=== PATIENT | female | born 1985 | race Caucasian/White ===

== ENCOUNTER → 2018-08-20 13:00 | Outpatient (CLI) | payer OTHER, SELFPAY | PROVIDERS: PCP Family Medicine | DX: Z23 Encounter for immunization (principal) | CPT/HCPCS: 90471; 90686 ==

== ENCOUNTER → 2019-03-04 08:48 | Outpatient (CLI) | payer OTHER, SELFPAY ==
[2019-03-07 14:29] LABS: Progesterone 19.9 ng/mL
== END ==
PROVIDERS: Family Provider Family Medicine; PCP Family Medicine; Visit Provider Obstetrics & Gynecology Reproductive Endocrinology
DX: Z31.41 Encounter for fertility testing (principal)
CPT/HCPCS: 36415; 84144

== ENCOUNTER → 2019-03-30 09:24 | Outpatient (CLI) | payer OTHER, SELFPAY ==
[2019-03-30 11:16] LABS: Progesterone, Total 5.76 ng/mL
== END ==
PROVIDERS: Family Provider Family Medicine; PCP Family Medicine; Visit Provider Obstetrics & Gynecology Reproductive Endocrinology
DX: Z31.41 Encounter for fertility testing (principal)
CPT/HCPCS: 36415; 84144

== ENCOUNTER → 2019-05-12 09:29 | Outpatient (CLI) | payer OTHER, SELFPAY ==
[2019-05-12 10:15] LABS: HCG Quantitative /Beta subunit 77.35 mIU/mL
== END ==
PROVIDERS: Family Provider Family Medicine; PCP Family Medicine; Visit Provider Obstetrics & Gynecology Reproductive Endocrinology
DX: Z32.00 Encounter for pregnancy test, result unknown (principal)
CPT/HCPCS: 36415; 84702

== ENCOUNTER → 2019-05-14 08:42 | Outpatient (CLI) | payer OTHER, SELFPAY ==
[2019-05-14 09:36] LABS: HCG Quantitative /Beta subunit 179.57 mIU/mL
[2019-05-14 10:13] LABS: Thyroid Stimulating Hormone 1.86 uIU/mL (0.47-4.68)
== END ==
PROVIDERS: PCP Family Medicine; Visit Provider Obstetrics & Gynecology Reproductive Endocrinology
DX: Z32.01 Encounter for pregnancy test, result positive (principal)
CPT/HCPCS: 36415; 84443; 84702

== ENCOUNTER → 2019-05-31 12:43 | Outpatient (CLI) | payer OTHER, SELFPAY ==
[2019-05-31 13:31] LABS: HCG Quantitative /Beta subunit 2217.4 mIU/mL
== END ==
PROVIDERS: PCP Family Medicine; Visit Provider Obstetrics & Gynecology Reproductive Endocrinology
DX: Z32.01 Encounter for pregnancy test, result positive (principal)
CPT/HCPCS: 36415; 84702

== ENCOUNTER → 2019-06-14 07:28 | Outpatient (CLI) | payer OTHER, SELFPAY ==
[2019-06-14 08:14] LABS: HCG Quantitative /Beta subunit 1803.7 mIU/mL
== END ==
PROVIDERS: PCP Family Medicine; Visit Provider Obstetrics & Gynecology Reproductive Endocrinology
DX: Z32.01 Encounter for pregnancy test, result positive (principal)
CPT/HCPCS: 36415; 84702

== ENCOUNTER → 2019-06-17 10:18 | Outpatient (CLI) | payer OTHER, SELFPAY ==
[2019-06-17 11:07] LABS: HCG Quantitative /Beta subunit 1288.4 mIU/mL
== END ==
PROVIDERS: PCP Family Medicine; Visit Provider Obstetrics & Gynecology Reproductive Endocrinology
DX: Z32.01 Encounter for pregnancy test, result positive (principal)
CPT/HCPCS: 36415; 84702

== ENCOUNTER 2019-06-19 17:57 | Observation (INO) | payer OTHER, SELFPAY ==
[2019-06-19] VITALS (18 sets, daily range): BP systolic 97–141; BP diastolic 60–87; PULSE 69–81; RESP 11–25; TEMP 36.1–37.6; O2SAT 91–98; BMI 33.6
--- NOTE | 2019-06-19 | PATH_ITS ---
[facility] Accession Number: [id number] . 01 Material submitted: . fallopian tube - LEFT FALLOPIAN TUBE . 01 Clinical history: . RUPTURED ECTOPIC . 02 Diagnosis: Left Fallopian Tube, Salpingectomy: Fallopian tube with luminal chorionic villi, mural defect and hemorrhage, consistent with ruptured ectopic . No evidence of malignancy. MRV/06/23/2019 . 02 Electronically signed: . Dash Cai MD, PhD, Pathologist NPI- [id number] . 01 Gross description: . Received in formalin, labeled left fallopian tube, is a fimbriated fallopian tube in two pieces (length-8.1 cm, diameter-up to 1.1 cm) with bonilla-purple, smooth and shiny serosa. The lumen is dilated and contains red-brown focally pale material. No tissue is identified. Also, submitted are multiple fragments of red-brown spongy tissue (2.6 x 2.3 x 0.5 cm in aggregate). Section code: (A1-A6) fallopian tube, serially sectioned and entirely submitted proximal to distal; (A7-A8) fimbria, bivalved; (A9) tissue fragments. The specimen is entirely submitted. ([id number]) /[facility] . 02 Pathologist provided ICD-10: O00.90 . 02 CPT . 962390 Performed at: 01 [facility] [address], [place], [place] [id number] MD Akbar Smiley MD Phone: [phone] Performed at: [facility] [address] [place], [place] [id number] MD Leah Murillo MD Phone: [phone]
--- NOTE | 2019-06-19 17:59 | ED.GENADULT ---
HPI - General Adult General Chief complaint: OB/Uterine Contractions Stated complaint: Ruptured ectopic Time Seen by Provider: 06/19/19 17:58 Source: patient Mode of arrival: EMS Limitations: no limitations History of Present Illness HPI narrative: 33-year-old female transferred to us from [facility] per the patient's request with a known diagnosis of left-sided ruptured ectopic . Patient is a . On 06/02/2019 was diagnosed with a left-sided ectopic . This was diagnosed by [facility]. She was undergoing treatment for infertility at the time however only received 1 dose of medication and then was diagnosed as being . On 06/02/2019 she stated that she would have been approximately 7 weeks EGA. The ectopic was diagnosed by ultrasound after her HCG levels were increasing however no IUP was identified. She received her 1st dose of methotrexate on that day. Her 2nd dose of methotrexate was on 06/10/2019. She stated that today at approximately 1100 hours this morning she was at a store when she had a sudden onset of left lower quadrant/left adnexa pain. She went to the closest hospital which was [facility]. Her OB doctor in [place] was contacted and the OB provider here at [facility] was contacted. Patient was transferred here per the patient's request. Upon arrival patient had received some pain medication and stated that her pain was slightly increasing. Her last meal was before noon today. Review of blood that was drawn at outside facility today shows a unremarkable CMP. Unremarkable BMP with the hemoglobin hematocrit of 13.2/39.3. Patient's blood type is a positive. Beta HCG today was 957. She had a pelvic ultrasound showing a complex left adnexal mass like lesion with persistent internal vascularity measuring 5.6 cm. This presumably corresponds to the previously described left ectopic . Complex small volume free fluid in pelvis. Related Data Home Medications Medication Instructions Recorded Confirmed vit-iron fum-folic ac 1 cap PO QDAY #0 08/13/17 [Mynatal] docosahexanoic acid 300 mg capsule mg PO cap 09/09/18 09/09/18 Previous Rx's Medication Instructions Recorded valacyclovir 500 mg tablet 500 mg PO TWICE A DAY #14 tab 09/23/18 oxycodone-acetaminophen [Percocet] 2 tab PO Q4-6H PRN #30 tab 06/19/19 Allergies Allergy/AdvReac Type Severity Reaction Status Date / Time No Known Drug Allergies Allergy Verified 06/19/19 18:05 Review of Systems Constitutional Denies fever(s) and Denies headache(s) ENT Ears, Nose, Mouth, and Throat: Denies headache(s) Cardiovascular Denies chest pain and Denies dyspnea Respiratory Denies dyspnea Gastrointestinal Gastrointestinal: Reports abdominal pain, Denies nausea and Denies vomiting Genitourinary Denies dysuria and Reports pelvic pain Musculoskeletal Denies myalgias and Denies arthralgias Neurologic Denies headache(s) Hematologic/Lymphatic Denies easy bleeding and Denies easy bruising [facility] Medical History Abnormal Pap smear of cervix (Chronic ~2010) Asthma (Chronic) CAMRYN II (cervical intraepithelial neoplasia II) (Chronic 2014) Fibroids (Chronic ~2008) GERD (gastroesophageal reflux disease) (Chronic) Hayfever (Chronic) Hemorrhoids (Chronic 2015) Scoliosis (Chronic) Social History marital status: household members: family lives independently: Yes education level: college occupational status: employed Smoking Status: Never smoker alcohol intake: current (rare) substance use type: does not use Exam Initial Vital Signs Initial Vital Signs: Vital Signs Temperature 99.6 F 06/19/19 17:56 Pulse Rate 69 06/19/19 17:56 Respiratory Rate 20 06/19/19 17:56 Blood Pressure 140/86 06/19/19 17:56 Pulse Oximetry 98 06/19/19 17:56 Const General: cooperative, comfortable, well developed, well groomed and No acute distress Orientation: alert and awake [facility] Head: normal to inspection and normocephalic Resp Effort & Inspection: normal respiratory effort Cardio Rate: regular rate Rhythm: regular rhythm GI Inspection: non-distended Skin Lesions: no lesions Rashes: no rashes Neuro General: alert and awake Cognition: normal cognition Speech: speech normal Extrem General: normal to inspection Psych Appearance: grossly normal and well kempt Course Orders Ordered: Sodium Chloride (Normal Saline 0.9%) 1,000 mls @ 125 mls/hr IV CONT DENYS Last Admin: 06/19/19 18:27 Dose: 125 mls/hr Discontinued Medications Morphine Sulfate (Morphine) 4 mg IV NOW ONE Stop: 06/19/19 18:12 Last Admin: 06/19/19 18:27 Dose: 4 mg Ondansetron HCl (Zofran) 4 mg IV NOW ONE Stop: 06/19/19 18:12 Last Admin: 06/19/19 18:27 Dose: 4 mg Vital Signs - 8 hr 06/19/19 17:56 06/19/19 18:41 Temperature 99.6 F Pulse Rate 69 74 Respiratory Rate 20 16 Blood Pressure 140/86 Blood Pressure [Left Arm] 141/87 H Pulse Oximetry 98 Medical Decision Making MDM Narrative Medical decision making narrative: Patient is stable. Dr. Bella with [employer] [facility] [employer] was contacted when the patient arrived. She knew that this patient was being transferred to this hospital. No further labs were ordered out of the emergency department. Patient was given 1 dose of pain medication and nausea medication. Will admit for further evaluation and treatment. Patient was made aware of the admission she expressed understanding and agreement. Discharge Plan Departure Patient Disposition: Admitted As Inpatient Clinical Impression: Ruptured ectopic Admit Date/Time: 06/19/19 18:41 Admit Provider: Colleen Bella
[2019-06-19] MEDS: ONDANSETRON 4 MG/2 ML INJ IV (18:27)
[2019-06-19] MEDS: MORPHINE 4 MG/ML INJ IV (18:27)
[2019-06-19] MEDS: SODIUM CHLORIDE 0.9% 1,000 ML 125 ML IV (18:27)
--- NOTE | 2019-06-19 18:49 | PM.GYNHP.1 ---
History of Present Illness Reason for admission: ectopic Narrative: Sara Simpson is a 33 year old female admitted for surgical treatment of an ectopic . Patient was diagnosed with an ectopic at her infertility Clinic. She was treated with methotrexate x2 on the in the . Her HCG levels were falling but she had sudden onset of severe pain and presented to the emergency room at [facility]. She was diagnosed with probable ruptured ectopic with mass in her left adnexa in free fluid in the abdomen. Patient requested coming to [facility] for her surgery. [facility] Social History marital status: household members: family lives independently: Yes education level: college occupational status: employed Smoking Status: Never smoker alcohol intake: current (rare) substance use type: does not use Meds Home Medications Medication Instructions Recorded Confirmed Type vit-iron fum-folic ac 1 cap PO QDAY #0 08/13/17 History [Mynatal] docosahexanoic acid 300 mg capsule mg PO cap 09/09/18 09/09/18 History valacyclovir 500 mg tablet 500 mg PO TWICE A DAY #14 tab 09/23/18 Rx oxycodone-acetaminophen [Percocet] 2 tab PO Q4-6H PRN #30 tab 06/19/19 Rx Allergies Allergy/AdvReac Type Severity Reaction Status Date / Time No Known Drug Allergies Allergy Verified 06/19/19 18:05 Review of Systems Review of Systems Patient has severe left lower quadrant pain. Mild nausea. Minimal vaginal bleeding. All systems reviewed & are unremarkable except as noted in HPI and below Exam Vital Signs (past 8 hours): - 06/19/19 17:56 06/19/19 18:41 Temperature 99.6 F Pulse Rate 69 74 Respiratory Rate 20 16 Blood Pressure 140/86 Blood Pressure [Left Arm] 141/87 H Pulse Oximetry 98 Oxygen Delivery Method Room Air Narrative Exam Narrative: HEENT exam within normal limits. Lungs are clear to auscultation percussion. Heart is regular rate and rhythm no S3-S4 or murmurs. Abdomen is soft with tenderness in the left lower quadrant. Pelvic exam was not repeated. Extremities without edema and nontender. Objective Imaging US - abdomen: Radiologist's impression: 5 cm left adnexal complex mass probable ectopic with free fluid in the abdomen. Assessment & Plan (1) Ruptured ectopic : Current visit: Yes Status: Acute Assessment & Plan narrative: Patient with ruptured ectopic likely. Options for removal or saving the 2 were discussed with the patient. She is aware that if we safer tube there is a 25% chance of ectopic . Patient decided she would prefer to have the tube removed rather than that and risk of ectopic repeating. She understands that this might lower her chance of in the future. Risks of laparoscopic removal were discussed the patient including damage to internal structures such as bowel, bladder, ureters. Minimal risk of infection or bleeding requiring transfusion. Possible opening abdomen. Consent form was signed and questions answered.
--- NOTE | 2019-06-19 18:55 | P.HPOB_ITS ---
History of Present Illness Reason for admission: ectopic Narrative: Sara Simpson is a 33 year old female admitted for surgical treatment of an ectopic . Patient was diagnosed with an ectopic at her infertility Clinic. She was treated with methotrexate x2 on the in the . Her HCG levels were falling but she had sudden onset of severe pain and presented to the emergency room at [facility]. She was diagnosed with probable ruptured ectopic with mass in her left adnexa in free fluid in the abdomen. Patient requested coming to [facility] for her surgery. [facility] Social History marital status: household members: family lives independently: Yes education level: college occupational status: employed Smoking Status: Never smoker alcohol intake: current (rare) substance use type: does not use Meds Home Medications Medication Instructions Recorded Confirmed Type vit-iron fum-folic ac 1 cap PO QDAY #0 08/13/17 History [Mynatal] docosahexanoic acid 300 mg capsule mg PO cap 09/09/18 09/09/18 History valacyclovir 500 mg tablet 500 mg PO TWICE A DAY #14 tab 09/23/18 Rx oxycodone-acetaminophen [Percocet] 2 tab PO Q4-6H PRN #30 tab 06/19/19 Rx Allergies Allergy/AdvReac Type Severity Reaction Status Date / Time No Known Drug Allergies Allergy Verified 06/19/19 18:05 Review of Systems Review of Systems Patient has severe left lower quadrant pain. Mild nausea. Minimal vaginal bleeding. All systems reviewed & are unremarkable except as noted in HPI and below Exam Vital Signs (past 8 hours): - 06/19/19 17:56 06/19/19 18:41 Temperature 99.6 F Pulse Rate 69 74 Respiratory Rate 20 16 Blood Pressure 140/86 Blood Pressure [Left Arm] 141/87 H Pulse Oximetry 98 Oxygen Delivery Method Room Air Narrative Exam Narrative: HEENT exam within normal limits. Lungs are clear to auscult ation percussion. Heart is regular rate and rhythm no S3-S4 or murmurs. Abdomen is soft with tenderness in the left lower quadrant. Pelvic exam was not repeated. Extremities without edema and nontender. Objective Imaging US - abdomen: Radiologist's impression: 5 cm left adnexal complex mass probable ectopic with free fluid in the abdomen. Assessment & Plan (1) Ruptured ectopic : Current visit: Yes Status: Acute Assessment & Plan narrative: Patient with ruptured ectopic likely. Options for removal or saving the 2 were discussed with the patient. She is aware that if we safer tube there is a 25% chance of ectopic . Patient decided she would prefer to have the tube removed rather than that and risk of ectopic repeating. She understands that this might lower her chance of in the future. Risks of laparoscopic removal were discussed the patient including damage to internal structures such as bowel, bladder, ureters. Minimal risk of infection or bleeding requiring transfusion. Possible opening abdomen. Consent form was signed and questions answered.
--- NOTE | 2019-06-19 18:55 | PM.PREOP ---
Pre-operative Note Interval Note History & Physical reviewed/Exam performed by Physician: Yes Changes to H&P: No
[2019-06-19] MEDS: LACTATED RINGERS 1,000 ML 42 ML IV (19:30)
--- NOTE | 2019-06-19 20:05 | SUR.OPER ---
Lithotomy on padded OR bed, head on pillow, arms secured on padded arm boards at <90 degrees abduction. Legs secured in padded yellow fins stirrups.
[2019-06-19] MEDS: BUPIVACAINE 0.5% W/ EPI (PF) VIAL 30 ML INJ (20:13)
--- NOTE | 2019-06-19 20:51 | PM.OP.1 ---
Operative Date/Time/Diagnoses Date of procedure: 06/19/19 Time of procedure: 20:51 Pre-op diagnosis: Ruptured ectopic Post-op diagnosis: same Procedure & Clinicians Procedure: Laparoscopic removal of left fallopian tube ectopic Same procedure as scheduled: Yes Indications: Patient with known ectopic with sudden onset of pain and free fluid in the abdomen with 5 cm complex mass on the left side Click Yes if Unassisted: Yes Anesthesia Type: General Operative Notes Findings: Left fallopian tube with rupture through the side of the fallopian tube. Normal right fallopian tube and ovary. Normal left ovary. Uterus with a small anterior subserosal fibroid. Approximately 100 cc of blood in the abdomen. Normal liver, normal bowel surface. Closure Type: primary Specimen(s): other (Left fallopian tube) Estimated Blood Loss (mL): 100 Blood products transfused: none Procedure in detail: Patient was brought to the operating room where she underwent general anesthesia. She was placed in low yellowfin stirrups and prepped and draped in usual sterile fashion. No antibiotics were indicated. Pulsatile stockings were in place and functional. Warming was with blankets. A single-tooth tenaculum was placed on the anterior lip of the cervix and the cervix dilated to #6 Hegar dilator. The Kay uterine manipulator was placed and balloon inflated with 3 mL of air. The area of the incisions were injected with half percent Marcaine with epinephrine. An incision was made in the umbilicus with a scalpel . The incision was carried down to the fascial layer with blunt dissection. The the fascia was incised transversely and held with 0 Vicryl suture x2. The Sahu trocar was placed in the abdomen and the abdomen insufflated with CO2. 2-5 mm trochars were placed in the right and left lower quadrant under direct visualization after incising the skin. There did not appear to be any damage with placement of the trocars. The left fallopian tube was grasped and removed by cauterizing and cutting the mesosalpinx and across the fallopian tube at the junction with the uterus with the PK generator. S The tube was brought up out of the abdomen. Adequate hemostasis was noted. The abdomen was irrigated. The CO2 was allowed to escape from the abdomen. The trochars were removed. Skin was closed with 4-0 monocryl. The patient went to recovery room in good condition. Complications: none Condition: stable Disposition: same day surgery Plan for aftercare: Home when awake and stable.
[2019-06-19] MEDS: HYDROMORPHONE 2 MG INJ 0.5 MG IV ×4 (21:07→21:41)
[2019-06-19] MEDS: OXYCODONE/ACETAMINOPHEN 5/325 TABLET 1 TAB PO ×2 (21:48→22:18)
[2019-06-19] MEDS: ONDANSETRON 4 MG ODT SL (22:35)
--- NOTE | 2019-06-19 22:48 | SUR.PHASEII ---
pt dressed self with mom at side without any difficultly. pt alert and talking to mom and RN at bedside. pt dc to home in stable condition.
--- NOTE | 2019-07-20 19:18 | PC.NURSE ---
Late entry: Pt transfered to surgery. Pt received 150mls of normal saline at time of transfer. Pt departed department with fluids infusing.
== END 2019-06-19 22:48 | disposition home or self-care (01) ==
LOC: ED 18:23 → AC 18:41
PROVIDERS: Admitting Provider Specialist; Emergency Provider Emergency Medicine; PCP Family Medicine; Visit Provider Specialist
PROC: (CPT 59151; principal; 2019-06-19 07:10)
DX: O00.102 Left tubal pregnancy without intrauterine pregnancy (principal)
CPT/HCPCS: 59151; 96361; 96374; 96375; 99219; 99282; 99283; G0378; J0330; J1100; J1170; J1885; J2250; J2270; J2405; J2704; J3010

== ENCOUNTER → 2019-08-11 09:13 | Outpatient (CLI) | payer OTHER, SELFPAY ==
[2019-08-11 12:46] LABS: Hemoglobin A1C% w Est Avg Glu 5.3 % (4.0-6.0)
[2019-08-11 16:13] LABS: Vitamin D 25 Hydroxy (D3) 43.3 ng/mL (30.0-100.0)
[2019-08-13 16:19] LABS: Homocysteine 7.9 umol/L (< 10.4)
[2019-08-13 16:28] LABS: Dehydroepiandrosterone Sulfate 103 mcg/dL (23-266)
[2019-08-13 19:08] LABS: Testosterone, Free 0.12 ng/dL
== END ==
PROVIDERS: PCP Family Medicine; Visit Provider Obstetrics & Gynecology Reproductive Endocrinology
DX: Z00.00 Encounter for general adult medical examination without abnormal findings (principal); Z31.41 Encounter for fertility testing
CPT/HCPCS: 36415; 82306; 82397; 82627; 83036; 83090; 83498; 84402

== ENCOUNTER → 2020-08-02 08:41 | Outpatient (CLI) | payer OTHER, SELFPAY ==
[2020-08-02 09:43] LABS: Alanine Aminotransferase 20 IU/L (<35); Albumin 3.9 g/dL (3.5-5.0); Albumin Globulin Ratio 1.3 (1.0-2.8); Alkaline Phosphatase 61 U/L (38-126); Aspartate Aminotransferase 24 IU/L (14-36); BUN Creatinine Ratio 11.3 (6-22); Bilirubin Total 0.5 mg/dL (0.2-1.3); Blood Urea Nitrogen 7 mg/dL (7-17); Calcium 9.5 mg/dL (8.4-10.2); Carbon Dioxide 27 mmol/L (22-32); Chloride 104 mmol/L (98-107); Cholesterol 196 mg/dL (140-199); Estimated Glomerular Filt Rate > 60.0 mL/min (>60); Globulin 2.9 g/dL (1.7-4.1); Glucose 110 mg/dL (70-100); HDL Cholesterol 50 mg/dL (40-60); HEMOLYSIS < 15 (0-50); LDL Cholesterol Calculated 121 mg/dL (<100); Potassium 4.5 mmol/L (3.4-5.1); Sodium 137 mmol/L (137-145); Total Protein 6.8 g/dL (6.3-8.2); Triglycerides 127 mg/dL (35-150)
== END ==
PROVIDERS: PCP Family Medicine; Referring Provider Family Medicine; Visit Provider Family Medicine
DX: E78.5 Hyperlipidemia, unspecified (principal)
CPT/HCPCS: 36415; 80053; 80061

== ENCOUNTER → 2020-08-09 06:51 | Outpatient (CLI) | payer OTHER, SELFPAY ==
[2020-08-09 08:39] LABS: Hemoglobin A1C% w Est Avg Glu 5.4 % (4.0-6.0)
[2020-08-09 08:59] LABS: BUN Creatinine Ratio 13.1 (6-22); Blood Urea Nitrogen 8 mg/dL (7-17); Calcium 9.5 mg/dL (8.4-10.2); Carbon Dioxide 27 mmol/L (22-32); Chloride 102 mmol/L (98-107); Estimated Glomerular Filt Rate > 60.0 mL/min (>60); Glucose 99 mg/dL (70-100); HEMOLYSIS < 15 (0-50); Potassium 4.6 mmol/L (3.4-5.1); Sodium 137 mmol/L (137-145)
== END ==
PROVIDERS: PCP Family Medicine; Referring Provider Family Medicine; Visit Provider Family Medicine
DX: R73.9 Hyperglycemia, unspecified (principal)
CPT/HCPCS: 36415; 80048; 83036